=== PATIENT | female | born 1955 | race American Indian/Alaskan Native ===

== ENCOUNTER 2017-01-31 12:14 | Outpatient (CLI) | payer BC ==
--- NOTE | 2017-01-31 13:35 | XRay Report ---
BILATERAL KNEES STANDING AP RADIOGRAPHS INDICATION: Bilateral knee pain. COMPARISON: 12/19/2010 right knee radiographs. FINDINGS: Standing AP projections of bilateral knees demonstrate severe medial compartment narrowing with [id number] appearance. Various degenerative spurring also noted, more so involving the medial corners and the tibial spines. Small calcification seen medial to the left femoral condyle superiorly. Small similar calcifications also noted superolateral to the right femoral condyle. CONCLUSION: Bilateral knee osteoarthritis with greatest, severe medial compartment narrowing, as described. Caro Stieda lesion on the left also noted. Please correlate. Thank you for the opportunity to participate in this patient's care.
== END 2017-01-31 12:15 | disposition home or self-care (01) ==
LOC: XRAY 12:14
PROVIDERS: ATTEND Orthopaedic Surgery
DX: M25.569 Pain in unspecified knee (principal); M17.0 Bilateral primary osteoarthritis of knee; M25.862 Other specified joint disorders, left knee; M25.861 Other specified joint disorders, right knee; I10 Essential (primary) hypertension; J45.909 Unspecified asthma, uncomplicated
CPT/HCPCS: 73565

== ENCOUNTER 2017-05-04 07:08 | Outpatient (CLI) | payer BC ==
--- NOTE | 2017-05-04 08:44 | Mammography Report ---
BILATERAL MAMMOGRAM with CAD: HISTORY: Cancer screening. Comparison study is dated April 30, 2014. FINDINGS: There are scattered fibroglandular densities (approximately 25%-50% glandular). No mass, distortion, suspicious calcification, or skin change is seen. IMPRESSION: Negative mammogram. There is no mammographic evidence of malignancy. RECOMMENDATION: Follow-up per ACS guidelines. BI-RADS CATEGORY: 1 = Negative ACR BI-RADS MAMMOGRAPHIC CODES: 0 = Needs additional imaging evaluation; 1 = Negative; 2 = Benign; 3 = Probably benign; 4 = Suspicious; 5 = Malignant; 6 = Known biopsy-proven malignancy COMMENT: 1. Dense breast tissue, i.e., adenosis, fibrocystic changes, etc., may obscure an underlying neoplasm. 2. Approximately 10% of cancers are not detected with mammography. 3. A negative mammography report should not delay biopsy if a clinically suspicious mass is present. COMMENT: Patient follow-up letters are generated in [employer].
== END 2017-05-04 07:09 | disposition home or self-care (01) ==
LOC: MAMMO 07:08
PROVIDERS: ATTEND Internal Medicine
DX: Z12.31 Encounter for screening mammogram for malignant neoplasm of breast (principal); I10 Essential (primary) hypertension; J45.909 Unspecified asthma, uncomplicated; D64.9 Anemia, unspecified
CPT/HCPCS: 77067; G0202

== ENCOUNTER 2017-08-27 09:53 | Outpatient (CLI) | payer BC ==
[2017-08-27 10:23] LABS: Basophils # (Auto) 0.1 K/mm3 (0.0-0.1); Basophils % (Auto) 1.2 % (0.0-1.8); Eosinophils # (Auto) 0.4 K/mm3 (0.0-0.4); Hematocrit 40.4 % (30.3-42.9); Hemoglobin 13.1 gm/dl (10.1-14.3); Lymphocytes # (Auto) 1.1 K/mm3 (1.2-5.4); Lymphocytes % (Auto) 23.2 % (13.4-35.0); Mean Corpuscular HGB Conc 32 % (30-34); Mean Corpuscular Hemoglobin 27 pg (28-32); Mean Corpuscular Volume 83 fl (79-97); Monocytes # (Auto) 0.6 K/mm3 (0.0-0.8); Monocytes % (Auto) 11.9 % (0.0-7.3); Platelet Count 151 K/mm3 (140-440); Red Blood Count 4.86 M/mm3 (3.65-5.03); Red Cell Distribution Width 13.8 % (13.2-15.2)
[2017-08-27 10:26] LABS: Bilirubin,Urine NEG (Negative); Blood,Urine NEG (Negative); Color,Urine Yellow (Yellow); Mucus,Urine FEW /HPF; Protein,Urine <15 mg/dL mg/dL (Negative); Urobilinogen,Urine < 2.0 mg/dL (<2.0)
[2017-08-27 10:31] LABS: INR 0.89 (0.87-1.13)
[2017-08-27 10:32] LABS: Partial Thromboplastin Time 25.2 Sec. (24.2-36.6)
[2017-08-27 10:53] LABS: Alanine Aminotransferase 16 units/L (7-56); Albumin 4.5 g/dL (3.9-5); BUN/Creatinine Ratio 15; Blood Urea Nitrogen 9 mg/dL (7-17); Calcium 9.9 mg/dL (8.4-10.2); Hemolysis Index 2
--- NOTE | 2017-08-27 11:06 | XRay Report ---
CHEST 2 VIEWS INDICATION: Right total knee arthroplasty. COMPARISON: 11/24/2010. FINDINGS: PA and lateral chest radiographs demonstrate normal cardiomediastinal silhouette. Unremarkable lungs with stable 4 mm probable calcified granuloma near the cardiac apex. Intact bones. CONCLUSION: No acute disease in the chest, stable. Thank you for the opportunity to participate in this patient's care.
== END 2017-08-27 09:54 | disposition home or self-care (01) ==
LOC: CARD 09:53
PROVIDERS: ATTEND Orthopaedic Surgery
DX: Z01.818 Encounter for other preprocedural examination (principal); I10 Essential (primary) hypertension; R79.89 Other specified abnormal findings of blood chemistry; Z79.899 Other long term (current) drug therapy; Z96.651 Presence of right artificial knee joint
CPT/HCPCS: 36415; 71046; 80053; 81001; 85025; 85610; 85730; 87086; 93005; 93010

== ENCOUNTER 2017-09-10 09:00 | Inpatient (IN) | payer BC ==
--- NOTE | 2017-09-03 09:46 | Anesthesia Consultation ---
Anesthesia Consult and Med Hx Date of service: 09/15/17 - Airway Anesthetic Teeth Evaluation: Good ROM Head & Neck: Adequate Mental/Hyoid Distance: Adequate Mallampati Class: Class II Intubation Access Assessment: Probably Good - Pulmonary Exam CTA: Yes - Cardiac Exam Cardiac Exam: RRR - Pre-Operative Health Status ASA Pre-Surgery Classification: ASA2 Proposed Anesthetic Plan: General Nerve Block: adductor canal block - Pulmonary Hx Smoking: No Hx Asthma: Yes (rare inhaler with pollens/grasses/exercise) Hx Sleep Apnea: No - Cardiovascular System Hx Hypertension: Yes (took meds) Hx Coronary Artery Disease: No Hx Heart Attack/AMI: No Hx Angina: No Hx Cardia Arrhythmia: No Hx Heart Murmur: No - Central Nervous System Hx Seizures: No CVA: No - Gastrointestinal Hx Gastroesophageal Reflux Disease: No - Endocrine Hx Renal Disease: No Hx Liver Disease: No Hx Non-Insulin Dependent Diabetes: No Hx Thyroid Disease: No - Hematic Hx Anemia: Yes Hx Sickle Cell Disease: No (bill) - Other Systems Hx Obesity: Yes - Additional Comments Anesthesia Medical History Comments: Informed consent obtained. does not want epidural/spinal
[2017-09-03 10:24] LABS: Bilirubin,Urine NEG (Negative); Blood,Urine NEG (Negative); Color,Urine Yellow (Yellow); Protein,Urine <15 mg/dL mg/dL (Negative); Urobilinogen,Urine < 2.0 mg/dL (<2.0)
[~2017-09-10 09:00] MED LIST: VANCOMYCIN PHARMACY TO DOSE IV SCH
[2017-09-14] MEDS ORDERED: ANCEF/STERILE WATER 2 GM/20 ML IV NR (00:01)
[2017-09-14] MEDS ORDERED: NACL BACTERIOSTATIC INFILTRATI ONE (06:13)
[2017-09-14] MEDS ORDERED: NACL 0.9% 1000 ML 1,000 ML ONE (06:34)
[2017-09-14] MEDS: VANCOMYCIN/NS 1 GM/250 ML 1 GM/250 ML BAG IV SCH ×2 (06:39→19:49)
[2017-09-14] MEDS ORDERED: MARCAINE 0.25% INFILTRATI ONE ×4 (06:46→10:17)
[2017-09-14] MEDS ORDERED: TORADOL ONE (06:46)
[2017-09-14] MEDS ORDERED: POLYMYXIN B SULFATE IV ONE ×3 (06:46→10:15)
[2017-09-14] MEDS ORDERED: XYLOCAINE 1% 20 mL ONE (06:46)
[2017-09-14] MEDS ORDERED: MORPHINE ONE (06:46)
[2017-09-14] MEDS ORDERED: TRANEXAMIC ACID ONE (06:46)
[2017-09-14] MEDS ORDERED: CLORPACTIN WCS-90 IR ONE ×4 (06:47→09:50)
[2017-09-14] MEDS ORDERED: BACITRACIN ONE (06:47)
[2017-09-14] MEDS ORDERED: NACL 0.9% 0 ML ONE (06:47)
[2017-09-14] MEDS ORDERED: VERSED IV PRN (07:01)
[2017-09-14] MEDS ORDERED: NAROPIN O.5% ONE (07:11)
[2017-09-14] MEDS ORDERED: XYLOCAINE MPF 2% ONE (07:22)
[2017-09-14] MEDS ORDERED: DIPRIVAN 10 MG/ML IV ONE (07:23)
[2017-09-14] MEDS ORDERED: NACL 0.9% 200 ML ONE (07:23)
[2017-09-14] MEDS ORDERED: NACL 0.9% 250ML 250 ML ONE (07:23)
[2017-09-14] MEDS ORDERED: SUBLIMAZE ONE (07:27)
[2017-09-14] MEDS ORDERED: NACL 0.9% 1000 ML 1,000 ML IV SCH (08:00)
[2017-09-14] MEDS ORDERED: PEPCID IV NR (08:00)
[2017-09-14] MEDS ORDERED: ASTRAMORPH PF 10MG/10ML ONE (08:02)
[2017-09-14] MEDS ORDERED: ePHEDrine SULFATE ONE (08:18)
[2017-09-14] MEDS ORDERED: TRANEXAMIC ACID IV ONE (08:20)
[2017-09-14] MEDS ORDERED: NACL 0.9% IV ONE (09:45)
[2017-09-14] MEDS ORDERED: BACITRACIN IR ONE ×2 (10:15)
[2017-09-14] MEDS ORDERED: MORPHINE IM ONE ×2 (10:17)
[2017-09-14] MEDS ORDERED: DECADRON ONE (10:53)
[2017-09-14] MEDS ORDERED: ZOFRAN ONE (10:53)
[2017-09-14] MEDS ORDERED: NACL 0.9% 1000 ML 2,000 ML ONE (10:53)
[2017-09-14] MEDS ORDERED: ZOFRAN IV PRN (11:27)
[2017-09-14] MEDS ORDERED: PHENERGAN PR PRN (11:27)
[2017-09-14] MEDS ORDERED: NARCAN 0.4 MG/1 ML IV PRN ×2 (11:27→11:40)
[2017-09-14] MEDS ORDERED: MILK OF MAGNESIA PO PRN (11:27)
[2017-09-14] MEDS ORDERED: NON-FORMULARY (Proair Hfa Inhaler 2 PUFF) PO PRN (11:32)
[2017-09-14] MEDS ORDERED: MORPHINE PCA 30MG/30ML IV ONE (11:51)
[2017-09-14] MEDS ORDERED: MORPHINE PCA 30MG/30ML IV SCH (12:00)
[2017-09-14] MEDS ORDERED: SODIUM CHLORIDE FLUSH SYRINGE 10 ML IV NR (12:00)
[2017-09-14] MEDS ORDERED: VANCOMYCIN PHARMACY TO DOSE IV SCH (12:00)
[2017-09-14] MEDS ORDERED: PROVENTIL IH PRN (12:43)
--- NOTE | 2017-09-14 12:53 | XRay Report ---
Right knee 2 views: History: Postop TKA. Findings: There is total knee replacement noted. The tibial and the femoral component is anatomic and in alignment. Postop soft tissue changes are noted. Impression: Stable postop total knee.
[2017-09-14] MEDS ORDERED: ceFAZolin 2 GM in NACL 0.9% 100 ML IV SCH (14:00)
--- NOTE | 2017-09-14 14:14 | Post Anesthesia Evaluation ---
- Post Anesthesia Evaluation Patient Participated: Yes Airway Patent: Yes Stable Respiratory Function: Yes Nausea/Vomiting: No Temp > 96.8F: Yes Pain Manageable: Yes Adequeate Hydration: Yes Anesthesia Complications: No Block Receding Appropriately: Yes Patient on Ventilator: No
--- NOTE | 2017-09-14 14:14 | Anesthesia Day of Surgery ---
Anesthesia Day of Surgery - Day of Surgery Patient Examined: Yes Patient H&P Reviewed: Yes Patient is NPO: Yes
[2017-09-14] MEDS ORDERED: VANCOMYCIN/NS 1 GM/250 ML 1 GM/250 ML BAG IV SCH (18:40)
[2017-09-14] MEDS: VANCOMYCIN/0.45 NS 1 GM/250 ML 1 GM/250 ML BAG IV SCH (18:40)
--- NOTE | 2017-09-14 18:42 | Consultation ---
History of Present Illness - Reason for Consult Consult date: 09/14/17 medical management Requesting physician: JIMMY BARROW - History of Present Illness History of present illness: Status post right total knee arthroplasty. Postop patient doing well. No complications. No shortness of breath no chest pain. No fever no chills. Past History Past Medical History: arthritis (asthma and allergic rhinitis), hypertension, other Past Surgical History: total knee replacement (right) Social history: lives with family, full code Family history: hypertension Medications and Allergies Allergies Allergy/AdvReac Type Severity Reaction Status Date / Time naproxen AdvReac Mild Hives Verified 01/25/16 14:06 Home Medications Medication Instructions Recorded Confirmed Last Taken Type Ibuprofen 600 mg PO DAILY 01/25/16 09/14/17 09/09/17 History ProAir HFA Inhaler 2 puff PO PRN PRN 01/25/16 09/03/17 Unknown History Triamter/Hctz 37.5-25 mg 1 tab PO DAILY 01/25/16 09/14/17 09/13/17 09:00 History Fexofenadine HCl [Tracey Allergy] 180 mg PO QDAY 09/14/17 09/14/17 09/14/17 03: 45 History Metoprolol 20 mg PO 09/14/17 Unknown History Active Meds: Active Medications Acetaminophen/Hydrocodone Bitart ([place]arion 10/325) 1 each PO Q4H PRN PRN Reason: Pain, Moderate (4-6) Albuterol (Proventil) 2.5 mg IH Q4HRT PRN PRN Reason: Allergy Symptoms Apixaban (Eliquis) 2.5 mg PO Q12HR CARLA; Protocol Stop: 09/26/17 21:59 Cefazolin Sodium (Ancef/Sterile Water 2 Gm/20 Ml) 2 gm IV PREOP NR Stop: 09/14/17 23:00 Celecoxib (Celebrex) 200 mg PO BID CARLA Docusate Sodium (Colace) 100 mg PO BID CARLA Gabapentin (Neurontin) 300 mg PO Q8HR CARLA Vancomycin HCl (Vancomycin/Ns 1 Gm/250 Ml) 1 gm in 250 mls @ 167.007 mls/hr IV PREOP CARLA; Protocol Stop: 09/14/17 23:02 Last Admin: 09/14/17 06:39 Dose: 167.007 mls/hr Sodium Chloride (Nacl 0.9% 1000 Ml) 1,000 mls @ 150 mls/hr IV DIRECT CARLA Last Admin: 09/14/17 06:35 Dose: 150 mls/hr Cefazolin Sodium (Ancef/Sterile Water 2 Gm/20 Ml) 2 gm in 20 mls @ 80 mls/hr IV Q8H CARLA Stop: 09/15/17 07:14 Vancomycin HCl (Vancomycin/0.45 Ns 1 Gm/250 Ml) 1 gm in 250 mls @ 167.007 mls/ hr IV Q12H CARLA Stop: 09/15/17 08:10 Loratadine (Claritin) 10 mg PO DAILY CARLA Magnesium Hydroxide (Milk Of Magnesia) 30 ml PO Q4H PRN PRN Reason: Constipation Midazolam HCl (Versed) 2 mg IV PREOP PRN PRN Reason: Anxiety Last Admin: 09/14/17 07:11 Dose: 2 mg Morphine Sulfate (Morphine Rural Sociologist 30mg/30ml) 0 mg IV DIRECT CARLA; Protocol Last Admin: 09/14/17 13:07 Dose: 1 cartstart Naloxone HCl (Narcan 0.4 Mg/1 Ml) 0.1 mg IV Q2MIN PRN PRN Reason: Res Rate </= 8 or 02 SAT < 92% Naloxone HCl (Narcan 0.4 Mg/1 Ml) 0.1 mg IV Q2MIN PRN PRN Reason: Res Rate </= 8 or 02 SAT < 92% Ondansetron HCl (Zofran) 4 mg IV Q8H PRN PRN Reason: Nausea And Vomiting Promethazine HCl (Phenergan) 25 mg NM Q6H PRN PRN Reason: Nausea And Vomiting Sodium Chloride (Sodium Chloride Flush Syringe 10 Ml) 10 ml IV PRN NR Stop: 09/16/17 11:59 Triamterene/HCTZ (Maxzide-25) 1 each PO QAM CARLA Vancomycin HCl (Vancomycin Pharmacy To Dose) 1 each IV PKCONSULT CARLA Review of Systems All systems: negative Exam - Constitutional Vitals: Temp Pulse Resp BP Pulse Ox 97.5 F L 69 18 104/45 89 09/14/17 17:35 09/14/17 17:35 09/14/17 17:35 09/14/17 17:35 09/14/17 17:35 General appearance: Present: no acute distress, well-nourished - EENT Eyes: Present: PERRL ENT: hearing intact, clear oral mucosa - Neck Neck: Present: supple, normal ROM - Respiratory Respiratory effort: normal Respiratory: bilateral: CTA - Cardiovascular Heart rate: 80 Rhythm: regular Heart Sounds: Present: S1 & S2. Absent: rub, click - Extremities Extremities: no ischemia, pulses intact, pulses symmetrical, No edema, abnormal (decreased range of motion in the right knee secondary to surgery) Peripheral Pulses: within normal limits - Abdominal General gastrointestinal: Present: soft, non-tender, non-distended, normal bowel sounds Female genitourinary: Present: normal - Rectal Rectal Exam: deferred - Integumentary Integumentary: Present: clear, warm, dry - Musculoskeletal Musculoskeletal: gait normal, strength equal bilaterally - Psychiatric Psychiatric: appropriate mood/affect, intact judgment & insight - Neurologic Neurologic: CNII-XII intact, moves all extremities - Allied Health Allied health notes reviewed: nursing, case management Assessment and Plan - Patient Problems (1) History of total knee arthroplasty Current Visit: Yes Status: Acute Qualifiers: Laterality: right Qualified Code(s): Z96.651 - Presence of right artificial knee joint Plan to address problem: POSTOP PATIENT DOING WELL Continue physical therapy (2) Hypertension Current Visit: Yes Status: Chronic Qualifiers: Hypertension type: essential hypertension Qualified Code(s): I10 - Essential (primary) hypertension Plan to address problem: cONTINUE METOPROLOL and triamterene and hydrochlorothiazide (3) Asthma Current Visit: Yes Status: Acute Plan to address problem: Continue pro-air (4) Allergic rhinitis Current Visit: Yes Status: Chronic Qualifiers: Allergic rhinitis trigger: pollen Plan to address problem: Continue fexofenadine (5) DVT prophylaxis Current Visit: Yes Status: Acute Plan to address problem: On ELIQUIS
[2017-09-14] MEDS: ANCEF/STERILE WATER 2 GM/20 ML 2 GM/20 ML SYRINGE IV SCH ×2 (19:59→23:00)
[2017-09-14] MEDS: NEURONTIN PO SCH ×2 (22:00→23:04)
[2017-09-14] MEDS ORDERED: LOPRESSOR PO SCH (22:30)
[2017-09-14] MEDS ORDERED: NON-FORMULARY (Metoprolol 25 MG) PO SCH (22:30)
[2017-09-14] MEDS: COLACE PO SCH (23:02)
[2017-09-14] MEDS: ELIQUIS PO SCH (23:05)
[2017-09-15] MEDS ORDERED: NACL 0.9% IV SCH (02:00)
[2017-09-15] MEDS ORDERED: NACL 0.9% 250ML IV ONE (02:30)
[2017-09-15 02:56] LABS: BUN/Creatinine Ratio 11; Blood Urea Nitrogen 8 mg/dL (7-17); Calcium 8.4 mg/dL (8.4-10.2); Hemolysis Index 9
[2017-09-15 02:59] LABS: Hemoglobin 11.4 gm/dl (10.1-14.3); Lymphocytes # (Auto) 0.4 K/mm3 (1.2-5.4); Lymphocytes % (Auto) 3.8 % (13.4-35.0); Mean Corpuscular HGB Conc 33 % (30-34); Mean Corpuscular Hemoglobin 28 pg (28-32); Mean Corpuscular Volume 85 fl (79-97); Monocytes # (Auto) 0.8 K/mm3 (0.0-0.8); Monocytes % (Auto) 8.3 % (0.0-7.3); Platelet Count 144 K/mm3 (140-440); Red Blood Count 4.12 M/mm3 (3.65-5.03); Red Cell Distribution Width 14.3 % (13.2-15.2)
--- NOTE | 2017-09-15 06:13 | Operative Report ---
SURGEON: Sean Kruger M.D. BARK GRINDER: Rina, orthopedic operative tech and Mikaela Mckeon OR tech. COMPLICATIONS: None. ESTIMATED BLOOD LOSS: Minimal, less than 50 mL. PREOPERATIVE DIAGNOSES: 1. Severe advanced osteoarthritis, right knee joint. 2. Severe varus and flexion deformity, right knee joint. POSTOPERATIVE DIAGNOSES: 1. Severe advanced osteoarthritis, tricompartmental, right knee joint. 2. Severe fixed varus and flexion deformity, severe varus deformity, right knee joint. 3. Synovial hypertrophy and synovial proliferation, right knee joint. PROCEDURES PERFORMED: 1. Right total knee replacement. 2. Partial synovectomy, right knee joint. COMPLICATIONS: None. BRIEF HISTORY: The patient had a painful right knee, severe advanced osteoarthritis. Opted for surgical intervention, risks and benefit discussed, informed consent obtained, brought to the hospital for the above procedure. DETAILS OF THE OPERATIVE REPORT: The patient was taken to the operating, smooth spinal epidural anesthesia as per the patient's request and the patient is 1 gram of vancomycin 2 hours before the procedure and 2 gram of Ancef half an hour before the procedure along with a gram of TXA 10 minutes before the incision. The patient's right knee, right lower extremity prepped and draped in sterile fashion. Tourniquet was used. The leg elevated, Esmarch used and tourniquet inflated to 300 mmHg. Longitudinal incision made over anterior aspect of the knee, exposing extensive mechanism. Arthrotomy was performed. Patella displaced laterally. Gross finding revealed severe advanced degenerative arthritis. Subperiosteal dissection was continued around the proximal medial tibia as necessary. Soft tissue release was performed to correct the fixed angular deformity. Significant dry and ____articular osteophytes were present, loose bodies were encountered in the joint, which was delivered out and sent for pathology as well. Osteophytes were removed. Subperiosteal dissection was continued around the proximal medial tibia as necessary. Soft tissue release was performed to correct the fixed angular deformity. Drill was used to open the femoral canal. Distal intramedullary femoral cutting guide was placed. Distal femur resected 5 degree valgus angle. Epicondylar access apex was determined. Femoral sizing guide was placed, appropriate components selected. Anteroposterior condyles were then resected with oscillating saw. Extramedullary tibial cutting guide was placed, proximal tibia resected perpendicular to the long axis of tibia, minimum bone resection was performed. Lamina green chain off bearer was placed between femur and tibia. Arthritic ACL and PCL ligaments were removed. Medial and lateral meniscectomy performed. Osteophytes present on the posteromedial aspect of the knee and was removed with curved osteotome rongeurs and a Bovie. Gap balancing was then achieved. There was tightness on the medial side and necessary release was performed to do appropriate gap balancing. Once this was balanced in flexion, extension and medial laterally, the alignment was checked with spacer block alignment elise, found to be acceptable. Tibia was then prepared by tibial reaming and broach system by placing the tibial tray in proper position, proper external rotation and prepared by reaming and broach system. The sclerotic proximal medial tibia, we made multiple small drill holes to better cement integration as well. Femur was then prepared for the box through Marin and Nephew trial femur using reaming and punch technique. Once this was done, patella was prepared with patellar reaming system prepared for three post-patella. Prepatellar thickness 22 mm. Post-patellar thickness 22 mm. The trialing was performed. We had full extension, full flexion, stable throughout range of motion with 9 poly, posterior stabilized poly. Patella tracked central, stable throughout range of motion. Trial components were removed, thoroughly washed the knee area with antibiotic-soaked normal saline followed by normal saline and Clorpactin irrigation was also used. To follow after that, we used antibiotic irrigation and normal saline irrigation as well. Bone surface cleaned, dried and cementing of the knee was performed. Tibia was cemented first, set in proper position, proper external rotation and packed in place. Excess cement was removed. Femur was then cemented in proper position, proper external rotation, impacted in place. Excess cement was removed. Trial liner was then placed, cementing of the patella performed, compression placed. Excess cement was removed. Once the cement was hardened, real tibial articulating surface was implanted and locked in place and well seated. Again moved through a range of motion and found to be extremely stable, full extension, full flexion, stable throughout range of motion. Tourniquet released. Hemostasis achieved. No active bleeder as such. Arthrotomy was closed with a combination of #2 Quill and 0 Vicryl interrupted suture. Subcutaneous tissue closed with 0 and 2-0 Vicryl interrupted sutures. Skin was closed with Monocryl. Aquacel dressing done. The patient tolerated the procedure well, shifted to recovery room in stable condition. Sponge and needle counts were correct. Knee immobilizer applied. JOB# [id number] KEN/CODY
[2017-09-15] MEDS: NEURONTIN PO SCH ×3 (06:40→22:36)
[2017-09-15] MEDS: VANCOMYCIN/0.45 NS 1 GM/250 ML 1 GM/250 ML BAG IV SCH (06:45)
[2017-09-15] MEDS: ANCEF/STERILE WATER 2 GM/20 ML 2 GM/20 ML SYRINGE IV SCH (06:51)
--- NOTE | 2017-09-15 08:41 | Progress Note ---
Assessment and Plan Assessment and plan: 62 year old female with history of hypertension, rhinitis had right knee arthroplasty yesterday and consented for the management of her blood pressure Status post right knee arthroplasty - Management is per orthopedics/primary Hypertension -Blood pressure is marginally low and I held the blood pressure this morning -We'll monitor pressure along Rhinitis - Continue loratadine DVT prophylaxis -Per primary Disposition - Per primary. History Interval history: Patient was seen and evaluated, though nursing issues overnight. We have consulted for the management of HTN. Hospitalist Physical - Physical exam Narrative exam: Not in cardiopulmonary distress. The patient appeared well nourished and normally developed. Vital signs as documented. Head exam is unremarkable. No scleral icterus . Neck is without jugular venous distension, thyromegaly, or carotid bruits. Lungs are clear to auscultation. Cardiac exam reveals regular rate and Rhythm. First and second heart sounds normal. No murmurs, rubs or gallops. Abdominal exam reveals normal bowel sounds, no masses, no organomegaly and no aortic enlargement. Extremities clean dressing on the right knee. POURER: Alert and oriented 3. No focal weakness. - Constitutional Vitals: Temp Pulse Resp BP Pulse Ox 98.2 F 68 18 96/48 100 09/15/17 04:12 09/15/17 04:12 09/15/17 04:12 09/15/17 04:12 09/15/17 04:12 General appearance: Present: no acute distress, well-nourished Results - Labs CBC & Chem 7: 09/15/17 02:28 09/15/17 02:28 Labs: Laboratory Last Values WBC 10.1 K/mm3 (4.5-11.0) 09/15/17 02:28 RBC 4.12 M/mm3 (3.65-5.03) 09/15/17 02:28 Hgb 11.4 gm/dl (10.1-14.3) 09/15/17 02:28 Hct 35.0 % (30.3-42.9) 09/15/17 02:28 MCV 85 fl (79-97) 09/15/17 02:28 MCH 28 pg (28-32) 09/15/17 02:28 MCHC 33 % (30-34) 09/15/17 02:28 RDW 14.3 % (13.2-15.2) 09/15/17 02:28 Plt Count 144 K/mm3 (140-440) 09/15/17 02:28 Lymph % (Auto) 3.8 % (13.4-35.0) L 09/15/17 02:28 [place] % (Auto) 8.3 % (0.0-7.3) H 09/15/17 02:28 Eos % (Auto) 0.0 % (0.0-4.3) 09/15/17 02:28 Baso % (Auto) 0.0 % (0.0-1.8) 09/15/17 02:28 Lymph # 0.4 K/mm3 (1.2-5.4) L 09/15/17 02:28 [place] # 0.8 K/mm3 (0.0-0.8) 09/15/17 02:28 Eos # 0.0 K/mm3 (0.0-0.4) 09/15/17 02: Baso # 0.0 K/mm3 (0.0-0.1) 09/15/17 02:28 Seg Neutrophils % 87.9 % (40.0-70.0) H 09/15/17 02:28 Seg Neutrophils # 8.9 K/mm3 (1.8-7.7) H 09/15/17 02:28 Sodium 137 mmol/L (137-145) 09/15/17 02:28 Potassium 4.4 mmol/L (3.6-5.0) 09/15/17 02:28 Chloride 102.2 mmol/L (98-107) 09/15/17 02:28 Carbon Dioxide 24 mmol/L (22-30) 09/15/17 02:28 Anion Gap 15 mmol/L 09/15/17 02:28 BUN 8 mg/dL (7-17) 09/15/17 02:28 Creatinine 0.7 mg/dL (0.7-1.2) 09/15/17 02:28 Estimated GFR > 60 ml/min 09/15/17 02:28 BUN/Creatinine Ratio 11 % 09/15/17 02:28 Glucose 146 mg/dL (65-100) H 09/15/17 02:28 Calcium 8.4 mg/dL (8.4-10.2) 09/15/17 02:28 Urine Color Yellow (Yellow) 09/03/17 10:05 Urine Turbidity Clear (Clear) 09/03/17 10:05 Urine pH 6.0 (5.0-7.0) 09/03/17 10:05 Ur Specific [place] 1.018 (1.003-1.030) 09/03/17 10:05 Urine Protein <15 mg/dl mg/dL (Negative) 09/03/17 10:05 Urine Glucose (UA) Neg mg/dL (Negative) 09/03/17 10:05 Urine Ketones Neg mg/dL (Negative) 09/03/17 10:05 Urine Blood Neg (Negative) 09/03/17 10:05 Urine Nitrite Neg (Negative) 09/03/17 10:05 Urine Bilirubin Neg (Negative) 09/03/17 10:05 Urine Urobilinogen < 2.0 mg/dL (<2.0) 09/03/17 10:05 Ur Leukocyte Esterase Tr (Negative) 09/03/17 10:05 Urine WBC (Auto) 1.0 /HPF (0.0-6.0) 09/03/17 10:05 Urine RBC (Auto) 3.0 /HPF (0.0-6.0) 09/03/17 10:05 U Epithel Cells (Auto) 2.0 /HPF (0-13.0) 09/03/17 10:05 Blood Type B POSITIVE 09/14/17 06:22 Antibody Screen Negative 09/14/17 06:22
[2017-09-15] MEDS: CLARITIN PO SCH (09:39)
[2017-09-15] MEDS: ELIQUIS PO SCH ×2 (09:40→22:37)
[2017-09-15] MEDS: COLACE PO SCH ×2 (09:40→22:36)
[2017-09-15] MEDS ORDERED: HCTZ PO SCH (10:00)
[2017-09-15] MEDS ORDERED: TRIAMTER PO SCH (10:00)
[2017-09-15] MEDS ORDERED: MAXZIDE-25 PO SCH (10:00)
[2017-09-15] MEDS ORDERED: NON-FORMULARY (Fexofenadine Hcl [Allegra Allergy] 180 MG) PO SCH (10:00)
[2017-09-15] MEDS: NORCO 10/325 PO PRN ×2 (13:09→18:50)
--- NOTE | 2017-09-15 18:20 | Progress Note ---
Subjective Date of service: 09/15/17 Interval history: patient doing fine, no complaints Dressing dry, no redness, Calf soft NT knee exercises taught A/P DC planning home health and home nurse visit and Home PT. ONce clear by medicine and PT AND once HH arrangements are made Objective Vital signs: Vital Signs - 12hr 09/15/17 09/15/17 09/15/17 07:35 09:39 10:00 Temperature 98.7 F Pulse Rate 61 Respiratory 18 20 Rate Blood Pressure 85/41 O2 Sat by Pulse 100 99 Oximetry 09/15/17 09/15/17 09/15/17 11:29 13:09 15:14 Temperature 98.8 F 98.6 F Pulse Rate 57 L 63 Respiratory 20 20 18 Rate Blood Pressure 90/47 96/54 O2 Sat by Pulse 99 100 Oximetry - Labs CBC & BMP: 09/15/17 02:28 09/15/17 02:28 Labs: Abnormal lab results 09/15/17 09/15/17 Range/Units 02:28 02:28 Lymph % (Auto) 3.8 L (13.4-35.0) % [place] % (Auto) 8.3 H (0.0-7.3) % Lymph # 0.4 L (1.2-5.4) K/mm3 Seg Neutrophils % 87.9 H (40.0-70.0) % Seg Neutrophils # 8.9 H (1.8-7.7) K/mm3 Glucose 146 H (65-100) mg/dL
[2017-09-16] MEDS: NEURONTIN PO SCH ×3 (06:38→22:26)
[2017-09-16] MEDS: ELIQUIS PO SCH ×2 (09:58→22:16)
[2017-09-16] MEDS: COLACE PO SCH ×2 (10:01→22:16)
[2017-09-16] MEDS: CLARITIN PO SCH (10:03)
[2017-09-16] MEDS: NORCO 10/325 PO PRN (12:36)
--- NOTE | 2017-09-16 13:15 | Progress Note ---
Assessment and Plan Assessment and plan: 62 year old female with history of hypertension, rhinitis had right knee arthroplasty yesterday and consented for the management of her blood pressure Status post right knee arthroplasty - Management is per orthopedics/primary Hypertension -Blood pressure is stable -patient is medically stable, he can continue his BP meds as an O/P and follow with PCP. Rhinitis - Continue loratadine DVT prophylaxis -Per primary Disposition - Per primary. History Interval history: No nursing issues overnight. We have consulted for the management of HTN. Hospitalist Physical - Physical exam Narrative exam: Not in cardiopulmonary distress. The patient appeared well nourished and normally developed. Vital signs as documented. Head exam is unremarkable. No scleral icterus . Neck is without jugular venous distension, thyromegaly, or carotid bruits. Lungs are clear to auscultation. Cardiac exam reveals regular rate and Rhythm. First and second heart sounds normal. No murmurs, rubs or gallops. Abdominal exam reveals normal bowel sounds, no masses, no organomegaly and no aortic enlargement. Extremities clean dressing on the right knee. PROCEDURAL NURSE: Alert and oriented 3. No focal weakness. - Constitutional Vitals: Temp Pulse Resp BP Pulse Ox 98.6 F 66 18 121/57 94 09/16/17 07:40 09/16/17 07:41 09/16/17 13:06 09/16/17 07:40 09/16/17 07:41 General appearance: Present: no acute distress, well-nourished Results - Labs CBC & Chem 7: 09/15/17 02:28 09/15/17 02:28 Labs: Laboratory Last Values WBC 10.1 K/mm3 (4.5-11.0) 09/15/17 02:28 RBC 4.12 M/mm3 (3.65-5.03) 09/15/17 02:28 Hgb 11.4 gm/dl (10.1-14.3) 09/15/17 02:28 Hct 35.0 % (30.3-42.9) 09/15/17 02:28 MCV 85 fl (79-97) 09/15/17 02:28 MCH 28 pg (28-32) 09/15/17 02:28 MCHC 33 % (30-34) 09/15/17 02:28 RDW 14.3 % (13.2-15.2) 09/15/17 02:28 Plt Count 144 K/mm3 (140-440) 09/15/17 02:28 Lymph % (Auto) 3.8 % (13.4-35.0) L 09/15/17 02:28 [place] % (Auto) 8.3 % (0.0-7.3) H 09/15/17 02:28 Eos % (Auto) 0.0 % (0.0-4.3) 09/15/17 02:28 Baso % (Auto) 0.0 % (0.0-1.8) 09/15/17 02:28 Lymph # 0.4 K/mm3 (1.2-5.4) L 09/15/17 02:28 [place] # 0.8 K/mm3 (0.0-0.8) 09/15/17 02:28 Eos # 0.0 K/mm3 (0.0-0.4) 09/15/17 02: Baso # 0.0 K/mm3 (0.0-0.1) 09/15/17 02:28 Seg Neutrophils % 87.9 % (40.0-70.0) H 09/15/17 02:28 Seg Neutrophils # 8.9 K/mm3 (1.8-7.7) H 09/15/17 02:28 Sodium 137 mmol/L (137-145) 09/15/17 02:28 Potassium 4.4 mmol/L (3.6-5.0) 09/15/17 02:28 Chloride 102.2 mmol/L (98-107) 09/15/17 02:28 Carbon Dioxide 24 mmol/L (22-30) 09/15/17 02:28 Anion Gap 15 mmol/L 09/15/17 02:28 BUN 8 mg/dL (7-17) 09/15/17 02:28 Creatinine 0.7 mg/dL (0.7-1.2) 09/15/17 02:28 Estimated GFR > 60 ml/min 09/15/17 02:28 BUN/Creatinine Ratio 11 % 09/15/17 02:28 Glucose 146 mg/dL (65-100) H 09/15/17 02:28 Calcium 8.4 mg/dL (8.4-10.2) 09/15/17 02:28 Urine Color Yellow (Yellow) 09/03/17 10:05 Urine Turbidity Clear (Clear) 09/03/17 10:05 Urine pH 6.0 (5.0-7.0) 09/03/17 10:05 Ur Specific [place] 1.018 (1.003-1.030) 09/03/17 10:05 Urine Protein <15 mg/dl mg/dL (Negative) 09/03/17 10:05 Urine Glucose (UA) Neg mg/dL (Negative) 09/03/17 10:05 Urine Ketones Neg mg/dL (Negative) 09/03/17 10:05 Urine Blood Neg (Negative) 09/03/17 10:05 Urine Nitrite Neg (Negative) 09/03/17 10:05 Urine Bilirubin Neg (Negative) 09/03/17 10:05 Urine Urobilinogen < 2.0 mg/dL (<2.0) 09/03/17 10:05 Ur Leukocyte Esterase Tr (Negative) 09/03/17 10:05 Urine WBC (Auto) 1.0 /HPF (0.0-6.0) 09/03/17 10:05 Urine RBC (Auto) 3.0 /HPF (0.0-6.0) 09/03/17 10:05 U Epithel Cells (Auto) 2.0 /HPF (0-13.0) 09/03/17 10:05 Blood Type B POSITIVE 09/14/17 06:22 Antibody Screen Negative 09/14/17 06:22
[2017-09-17] MEDS: CLARITIN PO SCH (09:38)
[2017-09-17] MEDS: COLACE PO SCH (09:38)
[2017-09-17] MEDS: ELIQUIS PO SCH (09:38)
[2017-09-17] MEDS: NORCO 10/325 PO PRN (09:42)
[2017-09-17 12:49] VITALS: BP 111/53
--- NOTE | 2017-09-17 14:53 | Progress Note ---
Assessment and Plan Assessment and plan: 62 year old female with history of hypertension, rhinitis had right knee arthroplasty yesterday and consented for the management of her blood pressure Status post right knee arthroplasty - Management is per orthopedics/primary Hypertension -Blood pressure is stable -patient is medically stable, he can continue his BP meds as an O/P and follow with PCP. Rhinitis - Continue loratadine DVT prophylaxis -Per primary Disposition - Per primary. History Interval history: No nursing issues overnight. We have consulted for the management of HTN. Hospitalist Physical - Physical exam Narrative exam: Not in cardiopulmonary distress. The patient appeared well nourished and normally developed. Vital signs as documented. Head exam is unremarkable. No scleral icterus . Neck is without jugular venous distension, thyromegaly, or carotid bruits. Lungs are clear to auscultation. Cardiac exam reveals regular rate and Rhythm. First and second heart sounds normal. No murmurs, rubs or gallops. Abdominal exam reveals normal bowel sounds, no masses, no organomegaly and no aortic enlargement. Extremities clean dressing on the right knee. NOVELTY TWISTER TENDER: Alert and oriented 3. No focal weakness. - Constitutional Vitals: Temp Pulse Resp BP Pulse Ox 98.1 F 60 20 111/53 98 09/17/17 11:51 09/17/17 11:51 09/17/17 11:51 09/17/17 11:51 09/17/17 11:51 General appearance: Present: no acute distress, well-nourished Results - Labs CBC & Chem 7: 09/15/17 02:28 09/15/17 02:28 Labs: Laboratory Last Values WBC 10.1 K/mm3 (4.5-11.0) 09/15/17 02:28 RBC 4.12 M/mm3 (3.65-5.03) 09/15/17 02:28 Hgb 11.4 gm/dl (10.1-14.3) 09/15/17 02:28 Hct 35.0 % (30.3-42.9) 09/15/17 02:28 MCV 85 fl (79-97) 09/15/17 02:28 MCH 28 pg (28-32) 09/15/17 02:28 MCHC 33 % (30-34) 09/15/17 02:28 RDW 14.3 % (13.2-15.2) 09/15/17 02:28 Plt Count 144 K/mm3 (140-440) 09/15/17 02:28 Lymph % (Auto) 3.8 % (13.4-35.0) L 09/15/17 02:28 [place] % (Auto) 8.3 % (0.0-7.3) H 09/15/17 02:28 Eos % (Auto) 0.0 % (0.0-4.3) 09/15/17 02:28 Baso % (Auto) 0.0 % (0.0-1.8) 09/15/17 02:28 Lymph # 0.4 K/mm3 (1.2-5.4) L 09/15/17 02:28 [place] # 0.8 K/mm3 (0.0-0.8) 09/15/17 02:28 Eos # 0.0 K/mm3 (0.0-0.4) 09/15/17 02: Baso # 0.0 K/mm3 (0.0-0.1) 09/15/17 02:28 Seg Neutrophils % 87.9 % (40.0-70.0) H 09/15/17 02:28 Seg Neutrophils # 8.9 K/mm3 (1.8-7.7) H 09/15/17 02:28 Sodium 137 mmol/L (137-145) 09/15/17 02:28 Potassium 4.4 mmol/L (3.6-5.0) 09/15/17 02:28 Chloride 102.2 mmol/L (98-107) 09/15/17 02:28 Carbon Dioxide 24 mmol/L (22-30) 09/15/17 02:28 Anion Gap 15 mmol/L 09/15/17 02:28 BUN 8 mg/dL (7-17) 09/15/17 02:28 Creatinine 0.7 mg/dL (0.7-1.2) 09/15/17 02:28 Estimated GFR > 60 ml/min 09/15/17 02:28 BUN/Creatinine Ratio 11 % 09/15/17 02:28 Glucose 146 mg/dL (65-100) H 09/15/17 02:28 Calcium 8.4 mg/dL (8.4-10.2) 09/15/17 02:28 Urine Color Yellow (Yellow) 09/03/17 10:05 Urine Turbidity Clear (Clear) 09/03/17 10:05 Urine pH 6.0 (5.0-7.0) 09/03/17 10:05 Ur Specific [place] 1.018 (1.003-1.030) 09/03/17 10:05 Urine Protein <15 mg/dl mg/dL (Negative) 09/03/17 10:05 Urine Glucose (UA) Neg mg/dL (Negative) 09/03/17 10:05 Urine Ketones Neg mg/dL (Negative) 09/03/17 10:05 Urine Blood Neg (Negative) 09/03/17 10:05 Urine Nitrite Neg (Negative) 09/03/17 10:05 Urine Bilirubin Neg (Negative) 09/03/17 10:05 Urine Urobilinogen < 2.0 mg/dL (<2.0) 09/03/17 10:05 Ur Leukocyte Esterase Tr (Negative) 09/03/17 10:05 Urine WBC (Auto) 1.0 /HPF (0.0-6.0) 09/03/17 10:05 Urine RBC (Auto) 3.0 /HPF (0.0-6.0) 09/03/17 10:05 U Epithel Cells (Auto) 2.0 /HPF (0-13.0) 09/03/17 10:05 Blood Type B POSITIVE 09/14/17 06:22 Antibody Screen Negative 09/14/17 06:22
--- NOTE | 2017-09-17 20:21 | Discharge Summary ---
Providers - Providers Date of Admission: 09/14/17 05:39 Date of discharge: 09/17/17 Attending physician: GARDENIA SOLO MD 09/14/17 11:27 Consult to Case Management [CONS] Routine Services Needed at Discharge: Home Health Services DME Equipment Physical Therapy Cds Sales Advisor Other Notified:: cm notified Comment:: HOME NURSE VISIT Consult to Physician [CONS] Routine Comment: Consulting Provider: MAURICIO BARNETT Physician Instructions: Reason For Exam: postop management TKA Occupational Therapy Evaluate and Treat [CONS] Routine Comment: Reason For Exam: POSTOP TKA 09/14/17 11:29 Physical Therapy Evaluation and Treat [CONS] Routine Comment: Reason For Exam: POSTOP TKA 09/14/17 11:42 Consult to Anesthesiology [CONS] Stat Consulting Provider: CARLOS ANESTHESIA WALLACE SIDHU Reason For Exam: POST OP PAIN MANAGEMENT. Primary care physician: JESSE MONTES Hospitalization Condition: Good Procedures: Rt TKA ---Post op did well Hospital course: Assessment and Plan - Patient Problems (1) History of total knee arthroplasty Current Visit: Yes Status: Acute Qualifiers: Laterality: right Qualified Code(s): Z96.651 - Presence of right artificial knee joint Plan to address problem: POSTOP PATIENT DOING WELL Continue physical therapy (2) Hypertension Current Visit: Yes Status: Chronic Qualifiers: Hypertension type: essential hypertension Qualified Code(s): I10 - Essential (primary) hypertension Plan to address problem: cONTINUE METOPROLOL and triamterene and hydrochlorothiazide (3) Asthma Current Visit: Yes Status: Acute Plan to address problem: Continue pro-air (4) Allergic rhinitis Current Visit: Yes Status: Chronic Qualifiers: Allergic rhinitis trigger: pollen Plan to address problem: Continue fexofenadine (5) DVT prophylaxis Current Visit: Yes Status: Acute Plan to address problem: On ELIQUIS Disposition: DC-01 TO HOME OR SELFCARE Exam - Constitutional Vitals: Temp Pulse Resp BP Pulse Ox 98.1 F 60 20 111/53 98 09/17/17 11:51 09/17/17 11:51 09/17/17 11:51 09/17/17 11:51 09/17/17 11:51 Plan Follow up with: JESSE MONTES MD [Primary Care Provider] - 7 Days
== END 2017-09-17 14:50 | disposition home or self-care (01) | DRG 470 ==
LOC: 3A 09-14 05:39 → 3B-SURG 09-14 12:25
PROVIDERS: ADMIT Orthopaedic Surgery; ATTEND Internal Medicine
PROC: 0SRC0J9 Replacement of Right Knee Joint with Synthetic Substitute, Cemented, Open Approach (ICD-10-PCS; principal; 2017-09-14)
DX: M17.11 Unilateral primary osteoarthritis, right knee (principal); I10 Essential (primary) hypertension; J45.909 Unspecified asthma, uncomplicated; M21.161 Varus deformity, not elsewhere classified, right knee; M21.261 Flexion deformity, right knee; Z79.899 Other long term (current) drug therapy
CPT/HCPCS: 36415; 62324; 64450; 80048; 81001; 85025; 86403; 86850; 86900; 86901; 87086; 87116; 88304; 88305; 88311; C1713; C1776; J0690; J1100; J1885; J2250; J2270; J2274; J2405; J2704; J2795; J3010; J3370; J7030; J7050

== ENCOUNTER 2018-05-28 06:27 | Outpatient (CLI) | payer BC ==
--- NOTE | 2018-05-28 16:39 | Mammography Report ---
BILATERAL DIGITAL SCREENING MAMMOGRAM with CAD: 05/28/18 06:27:00 CLINICAL: Routine screening. COMPARISON: 05/04/17 FINDINGS: There are bilateral scattered areas of fibroglandular density.No mass, architectural distortion or suspicious calcifications. IMPRESSION: No mammographic evidence of malignancy. BI-RADS CATEGORY: 1 -- Negative RECOMMENDATION: Routine mammographic screening in one year. COMMENT: Patient follow-up letters are generated by our [employer] application.
== END 2018-05-28 06:28 | disposition home or self-care (01) ==
LOC: MAMMO 06:27
PROVIDERS: ATTEND Obstetrics & Gynecology
DX: Z12.31 Encounter for screening mammogram for malignant neoplasm of breast (principal); I10 Essential (primary) hypertension; J45.909 Unspecified asthma, uncomplicated; E66.9 Obesity, unspecified; M19.90 Unspecified osteoarthritis, unspecified site; Z90.710 Acquired absence of both cervix and uterus; Z90.49 Acquired absence of other specified parts of digestive tract
CPT/HCPCS: 77067

== ENCOUNTER 2018-06-05 06:38 | Day surgery (SDC) | payer BC ==
[2018-06-05 07:06] LABS: Hematocrit 39.2 % (30.3-42.9); Hemoglobin 12.6 gm/dl (10.1-14.3); Mean Corpuscular HGB Conc 32 % (30-34); Mean Corpuscular Volume 86 fl (79-97); Platelet Count 147 K/mm3 (140-440); Red Blood Count 4.57 M/mm3 (3.65-5.03); Red Cell Distribution Width 13.9 % (13.2-15.2)
[2018-06-05 07:40] LABS: Alanine Aminotransferase 15 units/L (7-56); Albumin 4.4 g/dL (3.9-5); BUN/Creatinine Ratio 17; Blood Urea Nitrogen 10 mg/dL (7-17); Calcium 9.3 mg/dL (8.4-10.2); Chol/HDL Ratio 2.83 %; HDL Cholesterol 61 mg/dL (40-59); Hemolysis Index 8; LDL Cholesterol,Direct 110 mg/dL (50-130)
[2018-06-05 07:47] LABS: Free T4 (Free Thyroxine) 1.17 ng/dL (0.76-1.46)
== END 2018-06-05 06:39 | disposition home or self-care (01) ==
LOC: LAB 06:38
PROVIDERS: ATTEND Internal Medicine
DX: Z00.00 Encounter for general adult medical examination without abnormal findings (principal); I10 Essential (primary) hypertension; I30.9 Acute pericarditis, unspecified; E55.9 Vitamin D deficiency, unspecified; R53.83 Other fatigue; J45.909 Unspecified asthma, uncomplicated; M19.90 Unspecified osteoarthritis, unspecified site; E66.9 Obesity, unspecified; Z79.899 Other long term (current) drug therapy; Z88.1 Allergy status to other antibiotic agents; Z72.89 Other problems related to lifestyle; Z90.710 Acquired absence of both cervix and uterus; Z90.49 Acquired absence of other specified parts of digestive tract; Z98.890 Other specified postprocedural states
CPT/HCPCS: 36415; 80053; 80061; 82306; 84439; 84443; 85027

== ENCOUNTER 2019-01-23 09:01 | Outpatient (CLI) | payer BC ==
--- NOTE | 2019-01-23 09:34 | XRay Report ---
RIGHT FOOT, 3 VIEWS INDICATION: RT. FOOT PAIN. COMPARISON: None. IMPRESSION: Normal bone mineralization. No evidence for fracture, erosive joint pathology or bone le bacilio. There is a mild hallux valgus deformity with mild degenerative changes at the first metatarsoph alangeal joint. Mild diffuse degenerative spurring is noted in the midfoot. A large plantar spur is identified measuring up to 1 cm. The soft tissues are unremarkable. Signer Name: Tiago Mcclure Jr, MD Signed: 01/23/2019 9:30 AM Workstation Name: [id number]
== END 2019-01-23 09:02 | disposition home or self-care (01) ==
LOC: XRAY 09:01
PROVIDERS: ATTEND Podiatrist Foot & Ankle Surgery
DX: M19.071 Primary osteoarthritis, right ankle and foot (principal); M21.071 Valgus deformity, not elsewhere classified, right ankle; M77.8 Other enthesopathies, not elsewhere classified; I10 Essential (primary) hypertension; J45.909 Unspecified asthma, uncomplicated; M19.90 Unspecified osteoarthritis, unspecified site; Z90.710 Acquired absence of both cervix and uterus

== ENCOUNTER 2019-03-06 06:06 | Inpatient (IN) | payer BC ==
--- NOTE | 2019-02-24 09:54 | Anesthesia Consultation ---
Anesthesia Consult and Med Hx Date of service: 02/24/19 - Airway Anesthetic Teeth Evaluation: Good ROM Head & Neck: Adequate Mental/Hyoid Distance: Adequate Mallampati Class: Class II Intubation Access Assessment: Good - Pulmonary Exam CTA: Yes - Pre-Operative Health Status ASA Pre-Surgery Classification: ASA2 - Pulmonary Hx Smoking: No Hx Asthma: Yes (INHALER PRN- RARE USE) Hx Pneumonia: No Hx Sleep Apnea: No (KENA PRE SCREEN HIGH RISK) - Cardiovascular System Hx Hypertension: Yes (2005) Hx Coronary Artery Disease: No Hx Heart Attack/AMI: No Hx Angina: No Hx Cardia Arrhythmia: No Hx Heart Murmur: No - Central Nervous System Hx Seizures: No CVA: No - Gastrointestinal Hx Gastroesophageal Reflux Disease: No - Endocrine Hx Renal Disease: No Hx Liver Disease: No Hx Non-Insulin Dependent Diabetes: No Hx Thyroid Disease: No - Hematic Hx Anemia: Yes Hx Sickle Cell Disease: No (SC TRAIT) - Other Systems Hx Cancer: No Hx Obesity: Yes - Additional Comments Anesthesia Medical History Comments: Patient requests combo of Adductor block with GA as well as an epidural for post pain . She states that last time she had surgery , this combination worked well
[~2019-03-06 06:06] MED LIST changes: +ANCEF/STERILE WATER 2 GM/20 ML IV NR; +BACITRACIN IR ONE; +CLORPACTIN WCS-90 IR ONE; +LACTATED RINGERS 1,000 ML IV SCH; +MARCAINE 0.25% INFILTRATI ONE; +MORPHINE IM ONE; +NACL BACTERIOSTATIC INFILTRATI ONE; +NEURONTIN PO NR; +POLYMYXIN B SULFATE IV ONE; +SUBLIMAZE IV ONE; +TORADOL PO ONE; +VANCOMYCIN 1,500 MG in NACL 0.9% 500 ML 500 ML IV SCH; -VANCOMYCIN PHARMACY TO DOSE IV SCH; +VANCOMYCIN/NS 1 GM/250 ML 1 GM/250 ML BAG IV NR; +VERSED IV NR
[2019-03-06] MEDS ORDERED: BACITRACIN ONE (06:41)
[2019-03-06] MEDS ORDERED: CLORPACTIN WCS-90 IR ONE ×2 (06:41→09:40)
[2019-03-06] MEDS ORDERED: TRANEXAMIC ACID ONE (06:43)
[2019-03-06] MEDS ORDERED: MARCAINE 0.25% INFILTRATI ONE ×2 (06:43→09:50)
[2019-03-06] MEDS ORDERED: POLYMYXIN B SULFATE IV ONE ×2 (06:43→09:53)
[2019-03-06] MEDS ORDERED: NACL P/F VIAL (10 ML) 10 ML ONE ×2 (06:43→09:20)
[2019-03-06] MEDS ORDERED: MONSEL'S TP ONE (06:43)
[2019-03-06] MEDS ORDERED: TORADOL ONE (06:43)
[2019-03-06] MEDS ORDERED: MORPHINE ONE (06:44)
[2019-03-06] MEDS ORDERED: NACL 0.9% 250ML 500 ML ONE (06:44)
[2019-03-06] MEDS ORDERED: NACL 0.9% 300 ML ONE (06:46)
--- NOTE | 2019-03-06 07:00 | Anesthesia Day of Surgery ---
Anesthesia Day of Surgery - Day of Surgery Patient Examined: Yes Patient H&P Reviewed: Yes Patient is NPO: Yes
[2019-03-06] MEDS ORDERED: XYLOCAINE 1% 20 mL ONE (07:10)
[2019-03-06] MEDS ORDERED: SUBLIMAZE ONE ×2 (07:10→07:21)
[2019-03-06] MEDS ORDERED: MARCAINE-EPI 0.5%-1:200,000 INFILTRATI ONE (07:11)
[2019-03-06] MEDS ORDERED: ZEMURON IV ONE (07:20)
[2019-03-06] MEDS ORDERED: XYLOCAINE MPF 2% ONE (07:20)
[2019-03-06] MEDS ORDERED: ZOFRAN ONE (07:20)
[2019-03-06] MEDS ORDERED: DECADRON ONE (07:20)
[2019-03-06] MEDS ORDERED: DIPRIVAN 10 MG/ML IV ONE (07:21)
[2019-03-06] MEDS ORDERED: DILAUDID ONE (07:21)
[2019-03-06] MEDS ORDERED: KETAMINE 50 MG/ML-WATER SYRING ONE (07:21)
[2019-03-06] MEDS ORDERED: TRANEXAMIC ACID IV ONE ×2 (07:45→08:00)
[2019-03-06] MEDS ORDERED: NACL 0.9% IV ONE ×2 (09:45→09:49)
[2019-03-06] MEDS ORDERED: MORPHINE IM ONE (09:49)
[2019-03-06] MEDS ORDERED: TORADOL PO ONE (09:50)
[2019-03-06] MEDS ORDERED: BACITRACIN IR ONE (09:53)
[2019-03-06] MEDS ORDERED: NACL 0.9% IR ONE (09:54)
[2019-03-06] MEDS ORDERED: MILK OF MAGNESIA PO PRN (10:37)
[2019-03-06] MEDS ORDERED: ZOFRAN IV PRN ×2 (10:37→12:19)
[2019-03-06] MEDS ORDERED: PHENERGAN PR PRN (10:37)
[2019-03-06] MEDS ORDERED: NON-FORMULARY (Proair Hfa Inhaler 2 PUFF) PO PRN (10:40)
[2019-03-06] MEDS ORDERED: NORCO 7.5/325 PO PRN (10:41)
[2019-03-06] MEDS ORDERED: SODIUM CHLORIDE FLUSH SYRINGE 10 ML IV SCH (11:00)
[2019-03-06] MEDS: DILAUDID IV PRN ×2 (11:35→11:50)
[2019-03-06] MEDS ORDERED: PROVENTIL IH PRN (11:51)
--- NOTE | 2019-03-06 12:12 | XRay Report ---
LEFT KNEE, 2 VIEWS INDICATION: POSTOP TKA. COMPARISON: None. IMPRESSION: Recent left knee arthroplasty changes are demonstrated. The hardware appears well applie d. No evidence for fracture or bone lesion. Anterior and lateral soft tissue swelling is consistent w ith recent surgery. Signer Name: Tiago Mcclure Jr, MD Signed: 03/06/2019 12:08 PM Workstation Name: [id number]
[2019-03-06] MEDS ORDERED: SODIUM CHLORIDE FLUSH SYRINGE 10 ML IV PRN (12:19)
[2019-03-06] MEDS ORDERED: TYLENOL PO PRN (12:19)
--- NOTE | 2019-03-06 12:19 | History and Physical Report ---
History of Present Illness Date of admission: 03/06/19 06:06 Chief complaint: My knee hurts History of present illness: 63 YO Female with Asthma, HTN, Obesity, DJD admitted at the request of Dr. Kruger. Pt seen and evaluated in her room. Pt denies fever, chills, CP, palpitations, NVD, Trauma, productive cough, shortness of breath or recent ill contacts. No reported nursing events. Past History Past Medical History: other (see hpi) Past Surgical History: total knee replacement Social history: single. denies: smoking, alcohol abuse, prescription drug abuse Family history: hypertension Medications and Allergies Allergies Allergy/AdvReac Type Severity Reaction Status Date / Time naproxen Allergy Mild Hives Verified 02/20/19 12:38 Home Medications Medication Instructions Recorded Confirmed Last Taken Type Ibuprofen 600 mg PO DAILY 01/25/16 03/06/19 02/28/19 09:00 History ProAir HFA Inhaler 2 puff PO PRN PRN 01/25/16 02/18/19 Unknown History Triamter/Hctz 37.5-25 mg 1 tab PO DAILY 01/25/16 03/06/19 03/05/19 09:00 History Fexofenadine HCl [Tracey Allergy] 180 mg PO QDAY 09/14/17 03/06/19 03/05/19 09:00 History Estradiol [[place] 0.1mg/24hr] 0.1 mg TD QWEEK 02/24/19 03/06/19 03/01/19 09:00 History Ferrous Sulfate [Ferrous Sulfate 324 mg PO DAILY 02/24/19 03/06/19 03/04/19 09:00 History 324 MG] Active Meds: Active Medications Acetaminophen/Hydrocodone Bitart ([place] 7.5/325) 1 each PO Q4H PRN PRN Reason: Pain, Moderate (4-6) Albuterol (Proventil) 2.5 mg IH Q4HRT PRN PRN Reason: Shortness Of Breath Aspirin (Aspirin) 325 mg PO BID CARLA Cefazolin Sodium (Ancef/Sterile Water 2 Gm/20 Ml) 2 gm IV PREOP NR Stop: 03/06/19 23:00 Celecoxib (Celebrex) 200 mg PO PREOP NR Stop: 03/06/19 23:59 Celecoxib (Celebrex) 200 mg PO BID CARLA Gabapentin (Neurontin) 300 mg PO PREOP NR Stop: 03/06/19 23:59 Hydromorphone HCl (Dilaudid) 0.5 mg IV Q10MIN PRN PRN Reason: Pain , Severe (7-10) Stop: 03/06/19 15:30 Last Admin: 03/06/19 11:35 Dose: 0.5 mg Documented by: Vancomycin HCl 1,500 mg/ (Sodium Chloride) 530 mls @ 265 mls/hr IV PREOP CARLA Stop: 03/06/19 23:00 Last Admin: 03/06/19 07:30 Dose: 265 mls/hr Documented by: Lactated Ringer's (Lactated Ringers) 1,000 mls @ 100 mls/hr IV DIRECT CARLA Last Admin: 03/06/19 06:45 Dose: 100 mls/hr Documented by: Cefazolin Sodium 2 gm/ Sodium (Chloride) 100 mls @ 200 mls/hr IV Q8H [facility]; Protocol Stop: 03/07/19 06:29 Ketorolac Tromethamine (Toradol) 15 mg IV Q6HR [facility] Stop: 03/07/19 06:01 Magnesium Hydroxide (Milk Of Magnesia) 30 ml PO Q4H PRN PRN Reason: Constipation Midazolam HCl (Versed) 2 mg IV PREOP NR Stop: 03/06/19 23:59 Last Admin: 03/06/19 07:15 Dose: 2 mg Documented by: Miscellaneous Medication (Fexofenadine Hcl [Tracey Allergy]) 180 mg PO QDAY [facility] Ondansetron HCl (Zofran) 4 mg IV Q8H PRN PRN Reason: Nausea And Vomiting Promethazine HCl (Phenergan) 25 mg AL Q6H PRN PRN Reason: Nausea And Vomiting Sodium Chloride (Sodium Chloride Flush Syringe 10 Ml) 10 ml IV PRN [facility] Triamterene/HCTZ (Maxzide-25) 1 each PO QAM [facility] Review of Systems Constitutional: no weight loss, no weight gain, no chills, no sweats Ears, nose, mouth and throat: no ear discharge, no nose pain, no nasal congestion, no nasal discharge, no sinus pressure Breasts: no change in shape, no swelling, no mass Cardiovascular: no chest pain, no orthopnea, no rapid/irregular heart beat, no edema, no syncope, no shortness of breath Respiratory: no cough with sputum, no excessive sputum, no shortness of breath, no dyspnea on exertion Gastrointestinal: no nausea, no vomiting, no change in bowel habits Genitourinary Female: no dysmenorrhea, no flank pain, no menorrhagia, no urinary frequency Rectal: no pain, no incontinence, no bleeding Musculoskeletal: no neck stiffness, no neck pain, no low back pain, no shooting leg pain, no leg numbness/tingling Integumentary: no pruritis, no redness, no sores Neurological: no paralysis, no numbness, no tingling, no seizures Psychiatric: no memory loss, no change in sleep habits Endocrine: no cold intolerance, no heat intolerance, no excessive thirst, no polydipsia Hematologic/Lymphatic: no easy bruising, no easy bleeding, no lymphadenopathy, no lymphedema Allergic/Immunologic: no allergic rhinitis, no anaphylaxis, no angioedema Exam - Constitutional Vitals: Temp Pulse Resp BP Pulse Ox 97.8 F 55 L 12 116/60 100 03/06/19 11:12 03/06/19 11:25 03/06/19 11:35 03/06/19 11:25 03/06/19 11:25 General appearance: Present: no acute distress, well-nourished - EENT Eyes: Present: PERRL ENT: hearing intact, clear oral mucosa - Neck Neck: Present: supple, normal ROM - Respiratory Respiratory effort: normal Respiratory: bilateral: CTA - Cardiovascular Heart Sounds: Present: S1 & S2. Absent: rub, click - Extremities Extremities: pulses symmetrical, No edema Peripheral Pulses: within normal limits - Abdominal General gastrointestinal: Present: soft, non-tender, non-distended, normal bowel sounds Female genitourinary: Present: normal - Integumentary Integumentary: Present: clear, warm, dry - Musculoskeletal Musculoskeletal: gait normal, strength equal bilaterally - Psychiatric Psychiatric: appropriate mood/affect, intact judgment & insight - Neurologic Neurologic: CNII-XII intact, moves all extremities Assessment and Plan - Patient Problems (1) DJD (degenerative joint disease) Current Visit: Yes Status: Acute Qualifiers: Laterality: right Plan to address problem: S/P TKR, Ortho consulted, supportive care, (2) HTN (hypertension) Current Visit: Yes Status: Acute Qualifiers: Hypertension type: essential hypertension Qualified Code(s): I10 - Essential (primary) hypertension Plan to address problem: Monitor bp q shift, continue medical management. (3) Asthma Current Visit: Yes Status: Acute Qualifiers: Asthma severity: mild Asthma persistence: intermittent Plan to address problem: supplemental oxygen, supportive care, nebulizer prn (4) Obesity (BMI 35.0-39.9 without comorbidity) Current Visit: Yes Status: Acute Plan to address problem: balanced diet, increased physical activity at discharge (5) DVT prophylaxis Current Visit: Yes Status: Acute Plan to address problem: SCD to BLE while in bed, prophylaxis as per ortho team.
[2019-03-06] MEDS: ceFAZolin 2 GM in NACL 0.9% 100 ML IV SCH ×2 (15:26→22:17)
[2019-03-06] MEDS: TORADOL IV SCH ×2 (18:09→18:12)
[2019-03-06] MEDS: ASPIRIN PO SCH (22:01)
[2019-03-06] MEDS: COLACE PO SCH (22:02)
[2019-03-06] MEDS: SODIUM CHLORIDE FLUSH SYRINGE 10 ML IV SCH (22:03)
--- NOTE | 2019-03-06 22:08 | Post Anesthesia Evaluation ---
- Post Anesthesia Evaluation Patient Participated: Yes Airway Patent: Yes Stable Respiratory Function: Yes Nausea/Vomiting: No Temp > 96.8F: Yes Pain Manageable: Yes Adequeate Hydration: Yes Anesthesia Complications: No
[2019-03-07] MEDS: TORADOL IV SCH ×2 (00:26→05:40)
[2019-03-07] MEDS: ceFAZolin 2 GM in NACL 0.9% 100 ML IV SCH (05:44)
[2019-03-07 06:17] LABS: Hematocrit 32.8 % (30.3-42.9); Hemoglobin 10.7 gm/dl (10.1-14.3)
[2019-03-07 06:42] LABS: BUN/Creatinine Ratio 14; Blood Urea Nitrogen 10 mg/dL (7-17); Calcium 8.6 mg/dL (8.4-10.2); Hemolysis Index 1
[2019-03-07] MEDS ORDERED: NACL 0.9% 1000 ML 1,000 ML IV ONE (08:37)
--- NOTE | 2019-03-07 09:03 | Progress Note ---
Subjective Date of service: 03/07/19 Interval history: pod1, S/P TKA left, Doing well, AVSS, NVI Pain under control Dressing dry calf soft NT Continue DVT hh ARRANGEMENTS dc ONCE CLEAR BY MEDICINE AND PT Objective Vital signs: Vital Signs - 12hr 03/07/19 03/07/19 03/07/19 00:08 04:20 07:49 Temperature 98.3 F 98.5 F 98.5 F Pulse Rate 68 64 Respiratory 18 18 18 Rate Blood Pressure 99/48 90/46 81/38 O2 Sat by Pulse 95 95 Oximetry 03/07/19 03/07/19 07:50 08:11 Temperature Pulse Rate 62 Respiratory Rate Blood Pressure O2 Sat by Pulse 99 97 Oximetry - Labs CBC & BMP: 03/07/19 05:39 03/07/19 05:39 Labs: Abnormal lab results 03/07/19 Range/Units 05:39 Glucose 141 H (65-100) mg/dL
[2019-03-07] MEDS: FEOSOL PO SCH (09:27)
[2019-03-07] MEDS: ASPIRIN PO SCH ×2 (09:27→22:06)
[2019-03-07] MEDS: PERCOCET 5/325 PO PRN ×2 (09:27→22:09)
[2019-03-07] MEDS: COLACE PO SCH ×2 (09:28→22:06)
[2019-03-07] MEDS: CLARITIN PO SCH (09:28)
[2019-03-07] MEDS: SODIUM CHLORIDE FLUSH SYRINGE 10 ML IV SCH ×2 (09:32→22:16)
[2019-03-07] MEDS ORDERED: NON-FORMULARY (Fexofenadine Hcl [Allegra Allergy] 180 MG) PO SCH (10:00)
[2019-03-07] MEDS ORDERED: TRIAMTER PO SCH (10:00)
[2019-03-07] MEDS ORDERED: NON-FORMULARY (Ferrous Sulfate [Ferrous Sulfate 324 Mg] 324 MG) PO SCH (10:00)
[2019-03-07] MEDS ORDERED: HCTZ PO SCH (10:00)
[2019-03-07] MEDS: MAXZIDE-25 PO SCH (10:44)
--- NOTE | 2019-03-07 15:29 | Progress Note ---
Assessment and Plan Assessment and plan: 63 YO Female with Asthma, HTN, Obesity, DJD admitted at the request of Dr. Kruger. Pt seen and evaluated in her room. Pt denies fever, chills, CP, palpitations, NVD, Trauma, productive cough, shortness of breath or recent ill contacts. No reported nursing events. Hypotension DJD (degenerative joint disease) S/P Left TKA HTN (hypertension) Asthma Obesity (BMI 35.0-39.9 without comorbidity) Plan Continue supportive care Pain control Hold BP meds, per patient BP normally runs in the 90s, although prior hospital visit review shows the low 110s DVT/GI prophylaxis History Interval history: Patient seen and examined, ambulating with Physical therapy, No complain of dizziness Hospitalist Physical - Physical exam Narrative exam: General appearance: Present: no acute distress, well-nourished, ambulating with a walker - EENT Eyes: Present: PERRL ENT: hearing intact, clear oral mucosa - Neck Neck: Present: supple, normal ROM - Respiratory Respiratory effort: normal Respiratory: bilateral: CTA - Cardiovascular Heart Sounds: Present: S1 & S2. Absent: rub, click - Extremities Extremities: pulses symmetrical, No edema Peripheral Pulses: within normal limits - Abdominal General gastrointestinal: Present: soft, non-tender, non-distended, normal bowel sounds Female genitourinary: Present: normal - Integumentary Integumentary: Present: clear, warm, dry - Musculoskeletal Musculoskeletal: gait normal, left lower ext Bruno Dressing in place. - Psychiatric Psychiatric: appropriate mood/affect, intact judgment & insight - Neurologic Neurologic: CNII-XII intact, moves all extremities - Constitutional Vitals: Temp Pulse Resp BP Pulse Ox 98.5 F 62 18 81/38 97 03/07/19 07:49 03/07/19 07:50 03/07/19 07:49 03/07/19 07:49 03/07/19 08:11 General appearance: Present: no acute distress, well-nourished Results - Labs CBC & Chem 7: 03/07/19 05:39 03/07/19 05:39 Labs: Laboratory Last Values Hgb 10.7 gm/dl (10.1-14.3) 03/07/19 05:39 Hct 32.8 % (30.3-42.9) 03/07/19 05:39 Sodium 139 mmol/L (137-145) 03/07/19 05:39 Potassium 3.7 mmol/L (3.6-5.0) 03/07/19 05:39 Chloride 104.9 mmol/L (98-107) 03/07/19 05:39 Carbon Dioxide 24 mmol/L (22-30) 03/07/19 05:39 Anion Gap 14 mmol/L 03/07/19 05:39 BUN 10 mg/dL (7-17) 03/07/19 05:39 Creatinine 0.7 mg/dL (0.7-1.2) 03/07/19 05:39 Estimated GFR > 60 ml/min 03/07/19 05:39 BUN/Creatinine Ratio 14 % 03/07/19 05:39 Glucose 141 mg/dL (65-100) H 03/07/19 05:39 Calcium 8.6 mg/dL (8.4-10.2) 03/07/19 05:39 Blood Type B POSITIVE 03/06/19 06:30 Antibody Screen Negative 03/06/19 06:30 Active Medications - Current Medications Current Medications: Generic Name Dose Route Start Last Admin Trade Name Freq PRN Reason Stop Dose Admin Acetaminophen 650 mg 03/06/19 12:19 Tylenol PO Q4H PRN Pain MILD(1-3)/Fever >100.5/JANG Acetaminophen/Hydrocodone Bitart 1 each 03/06/19 10:41 [place] 7.5/325 PO Q4H PRN Pain, Moderate (4-6) Albuterol 2.5 mg 03/06/19 11:51 Proventil IH Q4HRT PRN Shortness Of Breath Aspirin 325 mg 03/06/19 22:00 03/07/19 09:27 Aspirin PO 325 mg BID CARLA Administration Celecoxib 200 mg 03/06/19 22:00 03/07/19 09:28 Celebrex PO 200 mg BID CARLA Administration Docusate Sodium 100 mg 03/06/19 22:00 03/07/19 09:28 Colace PO 100 mg BID CARLA Administration Ferrous Sulfate 325 mg 03/07/19 10:00 03/07/19 09:27 Feosol PO 325 mg QDAY CARLA Administration Lactated Ringer's 1,000 mls @ 100 mls/hr 03/04/19 09:00 03/06/19 22:04 Lactated Ringers IV Infused DIRECT CARLA Infusion Loratadine 10 mg 03/07/19 10:00 03/07/19 09:28 Claritin PO 10 mg DAILY CARLA Administration Magnesium Hydroxide 30 ml 03/06/19 10:37 Milk Of Magnesia PO Q4H PRN Constipation Ondansetron HCl 4 mg 03/06/19 12:19 Zofran IV Q8H PRN Nausea And Vomiting Oxycodone/Acetaminophen 1 tab 03/06/19 12:19 03/07/19 09:27 Percocet 5/325 PO 1 tab Q6H PRN Administration Pain, Moderate (4-6) Promethazine HCl 25 mg 03/06/19 10:37 Phenergan [place] Q6H PRN Nausea And Vomiting Sodium Chloride 10 ml 03/06/19 22:00 03/07/19 09:32 Sodium Chloride Flush Syringe 10 Ml IV 10 ml BID CARLA Administration Sodium Chloride 10 ml 03/06/19 12:19 Sodium Chloride Flush Syringe 10 Ml IV PRN PRN LINE FLUSH Triamterene/HCTZ 1 each 03/07/19 10:00 03/07/19 10:44 Maxzide-25 PO Not Given QAM CARLA
[2019-03-08 07:49] VITALS: BP 113/59
[2019-03-08] MEDS: FEOSOL PO SCH (09:26)
[2019-03-08] MEDS: ASPIRIN PO SCH (09:26)
[2019-03-08] MEDS: MAXZIDE-25 PO SCH (09:27)
[2019-03-08] MEDS: COLACE PO SCH (09:27)
[2019-03-08] MEDS: CLARITIN PO SCH (09:27)
[2019-03-08] MEDS: PERCOCET 5/325 PO PRN (09:28)
[2019-03-08] MEDS: SODIUM CHLORIDE FLUSH SYRINGE 10 ML IV SCH (09:30)
--- NOTE | 2019-03-08 11:04 | Discharge Summary ---
Providers - Providers Date of Admission: 03/06/19 06:06 Attending physician: JIMMY KRUGER 03/06/19 10:37 Consult to Case Management [CONS] Routine Services Needed at Discharge: Home Health Services Physical Therapy DME Equipment Admin Asst Occupational Therapy Notified:: cm notified Consult to Physician [CONS] Routine Comment: Consulting Provider: WHITLEY SERRANO Physician Instructions: Reason For Exam: postop medical management Occupational Therapy Evaluate and Treat [CONS] Routine Comment: Reason For Exam: POSTOP TKA Physical Therapy Evaluation and Treat [CONS] Routine Comment: KNEE BRACE Reason For Exam: postop TKA Mode of Transport?: Walker Weight bearing status?: Full wt bearing Primary care physician: JESSE MONTES Hospitalization Reason for admission: LEFT TKA Hospital course: 63 YO Female with Asthma, HTN, Obesity, DJD admitted at the request of Dr. Kruger. Pt seen and evaluated in her room. Pt denies fever, chills, CP, palpitations, NVD, Trauma, productive cough, shortness of breath or recent ill contacts. No reported nursing events. Patient did well post procedure, was noted to have low BP but states that she runs low, advised to have discussion with her PCP considering that it is lower than normal. BP meds where held. The patient also declined Eliquis, states that she normally will take Full dose ASA twice a day and follow with her Ortho doctor. She was monitored overnight and BP is back to baseline, she remains asymptomatic and will be discharged Hypotension DJD (degenerative joint disease) S/P Left TKA HTN (hypertension) Asthma Obesity (BMI 35.0-39.9 without comorbidity) Disposition: DC/[place]-06 HOME [facility] Time spent for discharge: 35 mins Core Measure Documentation - Palliative Care Palliative Care/ Comfort Measures: Not Applicable - Core Measures Any of the following diagnoses?: none Exam - Physical Exam Narrative exam: General appearance: Present: no acute distress, well-nourished, lying in bed - EENT Eyes: Present: PERRL ENT: hearing intact, clear oral mucosa - Neck Neck: Present: supple, normal ROM - Respiratory Respiratory effort: normal Respiratory: bilateral: CTA - Cardiovascular Heart Sounds: Present: S1 & S2. Absent: rub, click - Extremities Extremities: pulses symmetrical, No edema Peripheral Pulses: within normal limits - Abdominal General gastrointestinal: Present: soft, non-tender, non-distended, normal bowel sounds Female genitourinary: Present: normal - Integumentary Integumentary: Present: clear, warm, dry - Musculoskeletal Musculoskeletal: gait normal, left lower ext Bruno Dressing in place. - Psychiatric Psychiatric: appropriate mood/affect, intact judgment & insight - Neurologic Neurologic: CNII-XII intact, moves all extremities - Constitutional Vitals: Temp Pulse Resp BP Pulse Ox 98.3 F 74 20 113/59 94 03/08/19 07:18 03/08/19 07:18 03/08/19 07:18 03/08/19 07:18 03/08/19 07:18 Plan Activity: advance as tolerated, fall precautions Diet: regular Special Instructions: record daily BP diary Follow up with: JESSE MONTES MD [Primary Care Provider] - 7 Days JIMMY KRUGER MD [Staff Physician] - 7 Days Prescriptions: Aspirin 325 mg PO BID #60 tablet Docusate Sodium [Colace CAP] 100 mg PO BID #30 capsule Ferrous Sulfate [Feosol 325 MG tab] 325 mg PO QDAY #30 tablet oxyCODONE /ACETAMINOPHEN [Percocet 5/325 mg] 1 tab PO Q6H PRN #14 tablet PRN Reason: Pain, Moderate (4-6)
== END 2019-03-08 12:30 | disposition home health service (06) | DRG 470 ==
LOC: 3A 06:06 → 3B-SURG 12:31
PROVIDERS: ADMIT Orthopaedic Surgery; ATTEND Orthopaedic Surgery
PROC: 0SRD0JZ Replacement of Left Knee Joint with Synthetic Substitute, Open Approach (ICD-10-PCS; principal; 2019-03-06)
DX: M17.12 Unilateral primary osteoarthritis, left knee (principal); I10 Essential (primary) hypertension; E66.9 Obesity, unspecified; J45.20 Mild intermittent asthma, uncomplicated; Z68.37 Body mass index [BMI] 37.0-37.9, adult; Z79.899 Other long term (current) drug therapy
CPT/HCPCS: 36415; 64450; 80048; 85014; 85018; 86850; 86900; 86901; 87116; 88305; G0378; A4217; C1713; C1776; J0690; J1100; J1170; J1885; J2250; J2270; J2405; J2704; J3010; J3370; J7030; J7040; J7050; J7120

== ENCOUNTER 2019-05-29 09:20 | Outpatient (CLI) | payer BC ==
[2019-05-29 10:26] LABS: Chol/HDL Ratio 3.2 %
--- NOTE | 2019-05-29 10:41 | Mammography Report ---
DIGITAL SCREENING MAMMOGRAM WITH CAD, 05/29/2019 INDICATION: Routine screening mammography. TECHNIQUE: Digital bilateral 2D mammography was obtained in the craniocaudal and mediolateral obliq ue projections. This examination was interpreted with the benefit of Computer-Aided Detection analysi s. COMPARISON: 05/28/2018 and 05/04/2017 FINDINGS: Breast Density: There are scattered areas of fibroglandular density. A left asymmetry on the CC view requires additional imaging. No architectural distortion or suspiciou s calcifications. There is no evidence of dominant mass, suspicious calcifications or architectural d istortion in the right breast. IMPRESSION: Left asymmetry requiring additional imaging. Recommend recall for left ML and spot magnif ication CC views and left breast ultrasound if needed. Follow up recommendation: Routine yearly Category 0: Incomplete. Needs additional imaging evaluation and/or prior mammograms for comparison. A "normal" or negative report should not discourage follow up or biopsy of a clinically significant f inding. A written summary of these findings will be mailed to the patient. The patient will be entered into a mammography reporting system which will generate a reminder letter for the patient's next appointmen t at the appropriate interval. The [employer] recommends yearly mammograms starting at age 40 and continuing as l whit as a woman is in good health. Breast MRI is recommended for women with an approximate 20-25% or greater lifetime risk of breast cancer, including women with a strong family history of breast or ova rekha cancer or who have been treated for Hodgkin's disease. Signer Name: Ashish Duong MD Signed: 05/29/2019 10:37 AM Workstation Name: [id number]
== END 2019-05-29 09:21 | disposition home or self-care (01) ==
LOC: MAMMO 09:20
PROVIDERS: ATTEND Internal Medicine
DX: Z12.31 Encounter for screening mammogram for malignant neoplasm of breast (principal); N64.89 Other specified disorders of breast; I10 Essential (primary) hypertension; P83.2 Hydrops fetalis not due to hemolytic disease
CPT/HCPCS: 36415; 77067; 80061; 84436; 84443

== ENCOUNTER 2019-07-01 07:10 | Outpatient (CLI) | payer BC ==
--- NOTE | 2019-07-01 13:23 | Mammography Report ---
DIGITAL DIAGNOSTIC MAMMOGRAM WITH CAD, 07/01/2019 INDICATION: Recalled for asymmetry. ABN MAMMO TECHNIQUE: Digital left mammographic imaging was performed. Spot compression views were obtained. This examination was interpreted with the benefit of Computer-aided Detection analysis. COMPARISON: 05/29/2019 FINDINGS: Breast Density: There are scattered areas of fibroglandular density. ML and spot compression CC views were performed and are negative. IMPRESSION: No mammographic evidence of malignancy. Follow up recommendation: Routine yearly BI-RADS Category 1: Negative. A "normal" or negative report should not discourage follow up or biopsy of a clinically significant f inding. A written summary of these findings will be mailed to the patient. The patient will be entered into a mammography reporting system which will generate a reminder letter for the patient's next appointmen t at the appropriate interval. According to the [employer], yearly mammograms are recommended starting at age 40 and continuing as long as a woman is in good health. Breast MRI is recommended for women with an albert roximately 20-25% or greater lifetime risk of breast cancer, including women with a strong family his tory of breast or ovarian cancer and women who have been treated for Hodgkin's disease. Signer Name: Ashish Duong MD Signed: 07/01/2019 1:19 PM Workstation Name: [id number]
== END 2019-07-01 07:11 | disposition home or self-care (01) ==
LOC: MAMMO 07:10
PROVIDERS: ATTEND Internal Medicine
DX: R92.8 Other abnormal and inconclusive findings on diagnostic imaging of breast (principal)